=== PATIENT | female | born 1995 | race Caucasian/White ===

== ENCOUNTER 2021-05-31 11:09 | Emergency (ER) | payer OTHER, MEDICAID, SELFPAY ==
[2021-05-31 11:50] VITALS: BP 133/95; PULSE 104; RESP 16; TEMP 37.8; O2SAT 100; BMI 26.6
[2021-05-31] MEDS: Acetaminophen 325 MG TABLET 650 MG PO (11:59)
[2021-05-31 12:23] LABS: IDNOW Serial# 9DD0AD1C; Strep A Nucleic Acid Negative (Negative)
[2021-05-31 12:29] LABS: COVID-19 Test Negative (Negative)
--- NOTE | 2021-05-31 13:31 | ED_ITS ---
HPI - URI/Sore Throat General Chief Complaint: General Medical Stated Complaint: flu like symptoms Time Seen by Provider: 05/31/21 13:30 Source: patient Mode of arrival: ambulatory Limitations: language barrier (Citizen Of [place]-speaking) History of Present Illness MD elicited complaint: fever and sore throat Onset (ago): day(s) (Two days worse today) Consistency: constant and progressively worsening Severity: moderate Able to tolerate fluids by mouth: Yes Exacerbating factors: swallowing Relieving factors: nothing Associated symptoms: fever, chills, voice changes, myalgias, rhinorrhea, nasal congestion and sore throat Treatments prior to arrival: none Related Data Previous Rx's Medication Instructions Recorded amoxicillin 875 mg-potassium 1 tab PO BID 10 Days #20 tab 05/31/21 clavulanate 125 mg tablet (Augmentin) Allergies Allergy/AdvReac Type Severity Reaction Status Date / Time No Known Allergies Allergy Verified 05/31/21 12:21 Review of Systems Review of Systems: Constitutional : Positive subjective fevers/chills/fatigue/malaise No Weight loss ENT/Mouth : Positive sore throat, No Hearing loss, No Ear Pain, No Nasal Congestion, No Sinus Pain, No Hoarseness, No Rhinorrhea, No Swallowing Difficulty Eyes: No Eye Pain, No Swelling, No Redness, No Foreign Body, No Discharge, No Vision Changes Cardiovascular : No Chest Pain, No SOB, No Dyspnea on Exertion, No Orthopnea, No Edema, No Palpitations Respiratory : No Cough, No Sputum, No Wheezing, No Smoke Exposure, No Dyspnea Gastrointestinal : No Nausea, No Vomiting, No Diarrhea, No Constipation, No abdominal Pain, No Hematochezia, No Melena Genitourinary : no irregular bleeding, No Dysuria, No Urinary Frequency, No Hematuria, No Urinary Incontinence, No Urgency, No Flank Pain, No Urinary Flow Changes, No Hesitancy Musculoskeletal : No joint pain, No Myalgias, No Joint Swelling Skin : No Skin Lesions, No rash Neuro : No Weakness, No Numbness, No Paresthesias, No Loss of Consciousness, No Dizziness, No Headache Psych : No Anxiety/Panic, No Depression, No SI/HI/AH/VH, No Social Issues, Heme/Lymph: No Bruising, No Bleeding,No Lymphadenopathy Endocrine : No Polyuria, No Polydipsia, No Temperature Intolerance Yes all other systems are reviewed and are negative [facility] Past Medical History Attestation statement: The following information was validated with the patient. Medical History No known health problems Social History Social History Advance Directives: No Advance Directives Information Provided: Yes Patient : No Physical Exam Vital Signs: Vital Signs: Last Vital Signs Temp 100.1 F 05/31/21 11:50 Pulse 104 H 05/31/21 11:50 Resp 16 05/31/21 11:50 BP 133/95 H 05/31/21 11:50 Pulse Ox 100 05/31/21 11:50 Body Mass Index 26.6 vital signs have been reviewed as normal and appeared to be correct. Blood pressure hypertensive 133/95 Heart rate tachycardic at 104. Respiration rate normal. Temperature febrile 100.1. Oxygen saturation normal. Appearance: Alert. Oriented X3. No acute distress. Head: Normal external exam. Normocephalic. Atraumatic. Eyes: PERRLA. EOMI. Conjunctiva and sclera normal. Eyelids normal. ENT: EAC normal. TM's Normal. Posterior pharynx erythematous with exudate noted throughout. Uvula midline. Moist mucous membranes. No trismus noted. No drooling noted. No muffled voice noted. Not consistent with peritonsillar/pharyngeal/dental abscess. No stridor is noted. Neck: Normal inspection. Neck supple. FROM. No adenopathy. Thyroid Normal. No meningeal signs. No neck mass noted. CVS: Normal heart rate and rhythm. Heart sound normal. Pulses normal throughout. No murmurs/rales/gallops. Respiratory: No respiratory distress. Painless inspiration. Breath sounds normal. No wheezes/rales/rhonchi noted. Chest nontender. No accessory muscle usage noted or decreased air movement noted. Back: Full range of motion noted. No rashes/lesion/induration/fluctuance or signs of infection noted. Skin: Skin warm and dry. Normal skin color. Normal skin turgor. No rashes/lesions/lacerations noted. Extremities: Extremities exhibit normal range of motion. Extremities nontender. Neuro: Oriented X 3. No motor deficit. No sensory deficit. Reflexes normal. Normal steady gait. No focal neuro deficits noted. MDM - URI/Sore Throat Medical Records Attestation: I reviewed the patient's medical records. Lab Data Attestation: I reviewed the patient's lab results. Labs: Lab Results 05/31/21 05/31/21 Range/Units 12:01 12:02 COVID-19 (JENS) Negative (Negative) COVID-19 Clin Com See Note S. pyogenes GrpA GEOFF Negative (Negative) Discharge Plan Discharge Clinical Impression: Acute bacterial pharyngitis Patient Disposition: Home, Self-Care Instructions: Pharyngitis (ED) Prescriptions: New amoxicillin-pot clavulanate [Augmentin] 875-125 mg tablet 1 tab PO BID 10 Days Qty: 20 RF: 0 Referrals: Guille Gorman [Physician] - 2 days Print Language: Citizen Of [place]
[2021-05-31 13:33] VITALS: TEMP 37.1
[2021-05-31 13:52] LABS: IDNOW Serial# 9DD0AD1C; Strep A Nucleic Acid Negative (Negative)
== END 2021-05-31 13:43 | disposition home or self-care (01) ==
PROVIDERS: Physician Assistant Medical; Emergency Provider Emergency Medicine Emergency Medical Services
DX: J02.8 Acute pharyngitis due to other specified organisms (principal); R50.9 Fever, unspecified; M79.10 Myalgia, unspecified site; Z20.822 Contact with and (suspected) exposure to COVID-19; Z79.899 Other long term (current) drug therapy
CPT/HCPCS: 36415; 87635; 87651; 99283; 99284

== ENCOUNTER 2021-06-04 01:24 | Emergency (ER) | payer OTHER, MEDICAID, SELFPAY ==
[2021-06-04 04:45] VITALS: BP 136/82; PULSE 100; RESP 18; TEMP 38.4; O2SAT 97; BMI 27.5
--- NOTE | 2021-06-04 05:16 | ED.GENADULT ---
HPI - General Adult General Chief complaint: General Medical Stated complaint: throat pain, PT was here recently Time Seen by Provider: 06/04/21 05:16 Source: patient Mode of arrival: ambulatory Limitations: no limitations History of Present Illness HPI narrative: sore throat, she came to the ED on Monday and was started on Amoxicillin. The pain is worse and she has pain in her ears Onset (ago): day(s) Severity: moderate Related Data Previous Rx's Medication Instructions Recorded amoxicillin 875 mg-potassium 1 tab PO BID 10 Days #20 tab 05/31/21 clavulanate 125 mg tablet (Augmentin) Allergies Allergy/AdvReac Type Severity Reaction Status Date / Time No Known Allergies Allergy Verified 06/04/21 04:45 Review of Systems Constitutional: Constitutional: Reports no additional constitutional complaints Eyes: Eyes: Reports no additional eye complaints ENT: Denies dizziness Cardiovascular: Cardiovascular: Reports no additional cardiovascular complaints Respiratory: Respiratory: Reports as per HPI Gastrointestinal: Gastrointestinal: Reports no additional gastrointestinal complaints Genitourinary: Genitourinary: Reports no additional female genitourinary complaints Musculoskeletal: Musculoskeletal: Reports no additional musculoskeletal complaints Integumentary/Breasts: Skin/Breast: Denies rash Neurologic: Reports system reviewed and no additional complaints, except as documented, Denies dizziness and Denies Sensory deficit (Neuro) Psychiatric: Psychiatric: Denies anxiety PMF Past Medical History Medical History No known health problems Social History Social History Advance Directives: No Advance Directives Information Provided: Yes Patient : No Physical Exam Vital Signs: Vital Signs: Last Vital Signs Temp 101.1 F H 06/04/21 04:45 Pulse 100 06/04/21 04:45 Resp 18 06/04/21 04:45 BP 136/82 06/04/21 04:45 Pulse Ox 97 06/04/21 04:45 Body Mass Index 27.5 Const: Other: young female feeling weak Nutritional Appearance: average body habitus Orientation/consciousness: oriented to person and patient oriented x3 Limitations: no limitations HENMT: Other: pharynx with erythema and diffuse exudate, TMS are normal Head: Yes normal to inspection Ears: external ears normal General nose exam: Normal external nose present Mouth: Normal oral and palatal mucosa present Throat: Yes posterior oropharynx normal Eyes: General: appearance normal, both eyes and all related structures Neck: Other: supple Neck: Yes normal visual inspection Chest: Chest palpation & inspection: normal inspection of the chest Resp: Auscultation: clear to auscultation bilaterally Cardio: Jugular venous distension: no JVD Rate: regular rate Rhythm: regular rhythm Heart sounds: S1 normal heart sound present and S2 normal heart sound present GI: Inspection: Yes normal to inspection Palpation (GI): Soft to palpation, nontender and No hepatosplenomegaly present Auscultation: normal bowel sounds : General: Yes no CVA tenderness Back/Spine/Pelvis: Back: no CVA tenderness Skin: General skin exam: no rashes or lesions noted Neuro: General: oriented to person and patient oriented x3 Cranial nerves: Yes CN's II-XII intact bilaterally Motor exam (neuro): 5/5 motor strength present throughout Sensory Exam: No Sensory deficit (Neuro) Extrem: General: Yes normal to inspection Psych: Appearance: grossly normal Course Reevaluation(s) Reevaluation #1: patient with strep negative times 2, this is likely secondary to mono Time: 05:34 Reevaluation #2: Both strep and mono negative despite diffuse exudative pharyngitis. Will have the patient continue augmentin Time: 06:37 Medical Decision Making Lab Data Labs: Lab Results 06/04/21 06/04/21 Range/Units 04:59 05:59 Monoscreen Negative (Negative) S. pyogenes GrpA GEOFF Negative (Negative) Discharge Plan Discharge Clinical Impression: Exudative pharyngitis Patient Disposition: Home, Self-Care Instructions: Pharyngitis (ED) Additional Instructions: continue augmentin Prescriptions: No Action amoxicillin-pot clavulanate [Augmentin] 875-125 mg tablet 1 tab PO BID 10 Days Qty: 20 RF: 0 Referrals: Physician,Unknown [Primary Care Provider] - 1 week
[2021-06-04 05:18] LABS: IDNOW Serial# 9DD0AD1C; Strep A Nucleic Acid Negative (Negative)
[2021-06-04] MEDS: Ibuprofen 600 MG TABLET PO (05:47)
[2021-06-04] MEDS: dexAMETHasone sod phosphate 10 MG/ML VIAL IM (05:53)
[2021-06-04 06:20] LABS: Monotest Negative (Negative)
[2021-06-04 07:15] VITALS: TEMP 36.9
== END 2021-06-04 07:35 | disposition home or self-care (01) ==
PROVIDERS: Emergency Provider Emergency Medicine
DX: J02.8 Acute pharyngitis due to other specified organisms (principal); Z79.899 Other long term (current) drug therapy
CPT/HCPCS: 36415; 86308; 87651; 96372; 99283; 99284; J1100

== ENCOUNTER 2023-01-16 15:15 | Outpatient (REF) | payer MEDICAID, OTHER, SELFPAY ==
--- NOTE | ~2023-01-16 | US_ITS ---
EXAMINATION: US PELVIS CLINICAL INFORMATION: Pelvic pain, check IUD. COMPARISON: None available. TECHNIQUE: Ultrasound of the pelvis is performed using both transabdominal and transvaginal transducers along with Doppler. Transvaginal imaging is performed due to inadequate visualization transabdominally. FINDINGS: Uterus: The uterus is anteverted, anteflexed and measures 9.7 x 3.8 x 5.1 cm. The double wall endometrial thickness is 0.6 cm. There is an intrauterine contraceptive device in good position. The uterus is smooth in contour and has normal myometrial echogenicity. No visible fibroid. Adnexa: Both ovaries are visualized. There is normal color-flow to the adnexa. There is no ovarian torsion. There is no pelvic ascites or fluid collection. Right ovary measures 2.1 x 1.6 x 2.2 cm and volume 4.7 mL. It appears unremarkable. Left ovary measures 2.6 x 2.0 x 2.2 cm and volume 5.8 mL. There is a dominant follicle. There is no free fluid in the cul-de-sac. US/US pelvic and transvaginal IMPRESSION: The IUD is in correct position within the endometrial canal. Both ovaries are unremarkable except for a dominant follicle in the left ovary.
== END 2023-01-16 15:16 | disposition home or self-care (01) ==
LOC: HO.US 15:15
PROVIDERS: Visit Provider Advanced Practice Midwife
DX: N94.10 Unspecified dyspareunia (principal); Z30.431 Encounter for routine checking of intrauterine contraceptive device
CPT/HCPCS: 76830; 76856

== ENCOUNTER 2023-09-13 18:08 | Outpatient (REF) | payer MEDICAID, OTHER, SELFPAY | END 2023-09-13 18:09 | disposition home or self-care (01) | LOC: HO.HHCLNP 18:08 | PROVIDERS: Visit Provider Advanced Practice Midwife | DX: N89.8 Other specified noninflammatory disorders of vagina (principal) | CPT/HCPCS: 87480; 87510; 87660 ==

== ENCOUNTER 2023-10-20 10:16 | Outpatient (REF) | payer OTHER, SELFPAY ==
--- NOTE | ~2023-10-20 | XR_ITS ---
EXAMINATION: XR KNEE, RIGHT CLINICAL INFORMATION: Chronic right knee pain for 6 months COMPARISON: None available. TECHNIQUE: Four views of the right knee. FINDINGS: BONES: Bony structures are intact. There is no focal bone destruction or periosteal reaction seen. JOINTS: Alignment of joints is normal. SOFT TISSUE: Soft tissue is normal. No radiopaque foreign body or abnormal air collection is seen. XR/XR knee RT 4V IMPRESSION: 1. Normal x-rays of right knee. No fracture or dislocation or signs of osteomyelitis are found.
[2023-10-20 11:48] LABS: Basophils Percent Auto 0.4 % (0-2); Eosinophils Absolute Auto 0.1 X10*3/uL (0.0-0.4); Eosinophils Percent Auto 1.3 % (0-4); Hematocrit 37.8 % (37.0-47.0); Hemoglobin 12.5 g/dl (12.0-16.0); Imm Gran Abs Auto 0.01 X10*3/uL (0.00-0.03); Imm Gran Pct Auto 0.2 % (0.0-0.4); Lymphocytes Absolute Auto 1.5 X10*3/uL (1.2-4.9); Lymphocytes Percent Auto 31.4 % (20-40); MANUAL DIFF FLAG SCAN; Mean Corpuscular HGB Conc 33.1 g/dl (31.0-35.0); Mean Corpuscular Hemoglobin 28.9 pg (27.0-33.0); Mean Corpuscular Volume 87.5 fL (80.0-98.0); Mean Platelet Volume 10.5 fL (9.4-12.3); Monocytes Absolute Auto 0.2 X10*3/uL (0.1-1.2); Monocytes Percent Auto 4.2 % (2-11); Neutrophils Absolute Auto 2.9 x10*3/uL (2.0-8.3); Neutrophils Percent Auto 62.5 % (45-73); Platelet Count 240 X10*3/uL (160-400); Red Blood Count 4.32 X10*6/uL (4.20-5.50); Red Cell Distribution Width 13.2 % (11.0-16.0); SCAN SMEAR FLAG 1; White Blood Count 4.7 X10*3/uL (4.8-10.8)
[2023-10-20 12:27] LABS: Erythrocyte Sedimentation Rate 11 MM/HR (0-20)
[2023-10-20 13:30] LABS: SLIDE REVIEW VERIFIED
[2023-10-20 14:56] LABS: C Reactive Protein 0.83 mg/dL (< or = 0.50)
== END 2023-10-20 10:17 | disposition home or self-care (01) ==
LOC: HO.HHCL 10:16
PROVIDERS: Visit Provider Registered Nurse
DX: M25.561 Pain in right knee (principal); G89.29 Other chronic pain
CPT/HCPCS: 36415; 73564; 85025; 85652; 86140

== ENCOUNTER 2023-12-04 14:05 | Outpatient (REF) | payer OTHER, SELFPAY ==
[2023-12-04 16:51] LABS: HCG Quantitative 51 mIU/mL
== END 2023-12-04 14:06 | disposition home or self-care (01) ==
LOC: HO.HHCL 14:05
PROVIDERS: Visit Provider Registered Nurse
DX: Z34.91 Encounter for supervision of normal pregnancy, unspecified, first trimester (principal); Z3A.01 Less than 8 weeks gestation of pregnancy
CPT/HCPCS: 36415; 84702

== ENCOUNTER 2025-01-23 13:12 | Outpatient (REF) | payer MEDICAID, SELFPAY ==
--- OUTSIDE RECORDS SUMMARY | 2025-01-23 13:47 | XMS_ITS | Clinical Summary ---
Author Organization [employer] Address [address] [place] [address] 7t [place] [address] Care Team Providers Care Home Energy Rater Name Role Phone Haven Donaldson [facility] Primary Care Provider [phone] Allergies No known active allergies Medications * This document contains information received from the source organization and may not represent a complete record from that organization. albuterol 108 (90 Base) MCG/ACT inhalerIndicatio ns:Bronchitis Inhale 2 puffs every 6 (six) hours if needed for wheezing. 18 g 02/09/20 24 Active escitalopram (Lexapro) 5 MG tabletIndication s:Anxiety Take 1 tablet (5 mg) by mouth Once per day. 30 tablet 2 10/30/19 25 025 Active Magnesium Extra Strength 400 MG capsuleIndicatio ns:Constipation, unspecified constipation type TAKE 1 CAPSULE BY MOUTH ONCE PER DAY. 90 capsule 1 01/11/20 25 Active neomycin-polymyx in-hydrocortison e (Cortisporin) otic solutionIndicati ons:Acute otitis externa of right ear, unspecified type Administer 3 drops into the right ear 3 times daily for 7 days. 10 mL 01/17/20 25 025 Active amoxicillin-clav ulanate (Augmentin) 875-125 MG tabletIndication s:Non-recurrent acute suppurative otitis media of right ear without spontaneous rupture of tympanic membrane Take 1 tablet by mouth 2 times daily for 7 days. 14 tablet 01/17/20 25 025 Active fluticasone (Flonase) 50 MCG/ACT nasal spray Administer 1 spray into each nostril Once per day. 16 g 2 01/24/20 25 025 Active Magnesium 400 MG capsuleIndicatio ns:Constipation, unspecified constipation type Take 400 mg by mouth Once per day. 30 capsule 1 12/07/19 25 025 Discontinued Active Problems Problem Noted Date Diagnosed Date Tinnitus of both ears 01/23/2025 Current moderate episode of major depressive dis order 01/01/2025 History of rheumatic fever 10/31/2023 Anxiety 02/07/2023 Overview (07/19/2023): ?? Sertraline 25 mg ?? Hydroxyzine 25mg PRN ?? Unable to tolerate trazodone (s/e) ?? On waitlist for OP therapy Assessment & Plan (07/19/2023 10:55 PM EST): ?? Well controlled ?? Continue current regimen ?? Contact HC if sx worsen or experiencing thoughts of SI or self harm. Pt has N crisis contact information Assessment & Plan (03/17/2023 4:41 PM EDT): Assessment and plan: Patient presents with restlessness, frustration, over eating, weigh gain, tearfulness, sense of isolation, difficulty concentrating, hopelessness, helplessness, decreased assertiveness and irritability. She reports that sxs began about 1 yr ago when her father moved to her household after losing his job and living arrangements. Patient reports conflictive relationship with father since childhood. We explored treatment options and she agreed to referral to individual therapy and to explore antidepressants with PCP. Assessment & Plan (03/09/2023 6:16 AM EDT): ?? INCREASE sertraline to 50mg daily ?? START hydroxyzine PRN ?? Follow up with [facility] re therapy start ?? Contact HC if sx worsen or experiencing thoughts of SI or self harm. Pt has [facility] crisis contact information Healthcare maintenance 02/07/2023 Overview (02/07/2023): Mammo: Pap: NIL 12/2021 C-scope: BMD: HCV Screen: HIV Screen: Immunizations: Screening Labs: Resolved Problems Problem Noted Date Diagnosed Date Resolved Date Bronchitis 02/09/2024 04/24/2024 Assessment & Plan (02/10/2024 12:09 PM EDT): Pt with worsening cough and diffuse painful inspiration, no hx of asthma but audible wheeze, trial inhaler , if no improvement, add prednisone 20 mg daily for 5 days, side effects during of all medications reviewed. If fever develops, dehydration or pt feels worse, er and [facility] hours reviewed, Poc testing neg for covid and flu Moderate episode of recurren t major depressive disorder 12/12/2023 04/24/2024 Assessment & Plan (12/12/2023 12:23 PM EDT): PROGRESS NOTE: ID: Salud is a 28 y.o. cis-female with previous documented hx of Anxiety services including OP Psychotherapy and psychopharmacology; who presents for Anxiety and Depression. Lindsey moved from [facility] 5 years ago. Currently lives with her and daughters, not working currently. During IBH Consult Salud presenting with depressed mood, loss of interests/pleasure , change in appetite or weight overeating, psychomotor agitation, trouble concentrating, fatigue/loss of energy, inappropriate guilt and excessive worry/anxiety, difficulty controlling worry, restless/keyed up/On edge, easily fatigued, difficulty concentrating/Mind going blank , irritability, and muscle tension; for a period of 6-12 mo, for all symptoms in the context of stress relationship with father, who recently moved from [facility], lack of social support, feeling guilty due to removing father from her house. PLAN: New/Additional Services needed Off-site services for Behavioral Health Integration Plan External OP therapy referral and OP psychiatry Referral Patient Self Plan Patient to utilize skills provided in intervention and Patient to reach out to [facility] team as needed Abnormal uterine bleeding 02/07/2023 Encounters * This document contains information received from the source organization and may not represent a complete record from that organization. Date Type Department Care Team Description 01/23/2025 12:15 PM EDT Office Visit [facility] MEDICINE [address] [place] [id number] Stephanie Balderas MD Tinnitus of both ears (Primary Dx); Amenorrhea 01/23/2025 Travel 01/21/[address] [address] Haven Donaldson FNP Nurse Triage 01/16/2025 8:40 AM EDT Office Visit [facility] WALKIN [address] [address] Farshad Dickson MD Non-recurrent acute suppurative otitis media of right ear without spontaneous rupture of tympanic membrane (Primary Dx); Acute otitis externa of right ear, unspecified type 01/16/[address] [address] Haven Donaldson, PHYSICIAN AIDE recalls 01/16/2025 Travel 01/10/2025 Refill [facility] WALK-IN [address] [address] Haven Donaldson, REEMA Constipation, unspecified constipation type 01/02/2025 Patient Outreach [address] [address] Haven Donaldson, PHYSICIAN AIDE Care Coordination (C3/HARRIETT Armas- Follow up call) 01/02/[address] [address] Haven Donaldson PHYSICIAN AIDE Care Management (C3CM follow up call) 12/24/2024 Patient Outreach [address] [address] Haven Donaldson, PHYSICIAN AIDE Care Coordination (Shruti/HARRIETT rAmas#1- Follow up call-LVM) 12/06/2024 Orders Only [facility] WALK-IN CENTER [address] [place] [address] Haven Donaldson, PHYSICIAN AIDE Constipation, unspecified constipation type (Primary Dx) 12/06/2024 Patient Outreach [address] [address] Haven Donaldson, PHYSICIAN AIDE Care Coordination (C3SINA/HARRIETT Armas-Follow up) 12/06/[address] [address] [place], Haven, PHYSICIAN AIDE Care Management (C3CM follow up call) 12/02/[address] [address] Haven Donaldson PHYSICIAN AIDE Care Management ([facility] case conference) 2024 10:15 AM EDT Telemedicine [facility] Romulo [facility] [place] [address] Haevn Donaldson FNP Anxiety (Primary Dx); Upper respiratory tract infection, unspecified type 2024 Travel 11/22/2024 Population Health Risk Score Community [facility] (C3) [address] [phone] Provider, Population Health Generic 11/20/[address] [address] Haven Donaldson PHYSICIAN AIDE Care Management ([facility] initial assessment/enrollme nt) 11/20/2024 Patient Outreach [address] [address] Haven Donaldson PHYSICIAN AIDE Care Coordination ([facility]/HARRIETT Armas- Follow up call) 11/19/2024 Patient Outreach [address] [address] Haven Donaldson PHYSICIAN AIDE Care Coordination (HARRIETT Arnett- CM [place] Appt reminder) 11/05/2024 Patient Outreach [address] [address] Haven Donaldson PHYSICIAN AIDE Care Coordination ([facility]/HARRIETT Armas- PCP Referral-Agrees to participate) 11/04/[address] [address] Haven Donaldson PHYSICIAN AIDE Care Management ([facility] chart review) 10/30/2024 3:15 PM EST Telemedicine [facility] [place] [address] Haven Donaldson PHYSICIAN AIDE Anxiety (Primary Dx) 10/30/2024 Travel from Last 3 Months Social History Tobacco Use Types Packs/Day Years Used Date Smoking Tobacco: Never Smokeless Tobacco: Never Tobacco Cessation:Counseling Given: Not Answered Alcohol Use Standard Drinks/Week Comments Never 0 (1 standard drink = 0.6 oz pur e alcohol) Depression Answer Date Recorded Patient Health Questionnaire-9 Score 0 2024 Patient Health Questionnaire-9 Score 0 2024 Last PHQ-9: Questionnaire Data Not on file 0 2024 Housing Stability Answer Date Recorded What is your housing situation today? I have beryl butler 10/30/[address] you li ve. Do you have problems with any of the following? None of the above 10/30/2024 Food Insecurity Answer Date Recorded Within the past 12 months, y ou worried that your food would run out before you got money to buy more: Never True 10/30/2024 Within the past 12 months,th e food you bought just didn't last and you didn't have enough money to get more: Never True Transportation Answer Date Recorded In the past 12 months, has l ack of transportation kept you from medical appts, meetings, work or from getting things needed for daily living? No 10/30/2024 Utilities Answer Date Recorded In the past 12 months, has t he electric, gas, oil or water company threatened to shut off services in your home? No 10/30/2024 Depression Answer Date Recorded Patient Health Questionnaire-2 Score 0 2024 Internet Access Answer Date Recorded Internet Access Q1 Yes 10/30/2024 Internet Access Q2 Not on file 10/30/2024 Comments Unknown Sex and Gender Information Value Date Recorded Sex Assigned at Female 11/25/2022 9:23 AM EDT Legal Sex Female 9:17 AM EDT Gender Identity Female 11/25/2022 9:23 AM EDT Sexual Orientation Straight 11/25/2022 9: 23 AM EDT Last Filed Vital Signs Vital Sign Reading Time Taken Comments Blood Pressure 116/69 01/23/2025 12:26 PM EDT Pulse 87 01/23/2025 12:26 PM EDT Temperature 36.2 ??C (97.2 ??F) 01/23/2025 12:26 PM E DT Respiratory Rate 20 01/23/2025 12:26 PM EDT Oxygen Saturation 98% 01/23/2025 12:26 PM EDT Inhaled Oxygen Concentration - - Weight 81.8 kg (180 lb 4 oz) 01/23/2025 12:26 PM EDT Height 165.1 cm (5' 5 ) 01/23/2025 12:26 PM EDT Body Mass Index 30 01/23/2025 12:26 PM EDT Plan of Treatment Upcoming Encounters Date Type Department Care Team (Late st Contact Info) Description 04/25/2025 9:30 AM EDT Office Visit [facility] MEDICINE [address] [place] [address] Hart[place], Milo, [facility] [address] [place] [address] Health Maintenance Due Date Last Done Comments Alcohol/Substance Use Screening 2006 Family Planning (PISQ) 2009 Hepatitis B Vaccines (1 of 3 - 19+ 3-dose series) 2013 COVID-19 Vaccine (2023-2 5 season) 2024 HPV/Cotest 2024 SDOH Screening 11/05/2025 11/05/2024 Depression Screening 2025 2024, 2024 Cervical Cancer Screening 01/04/2026 Pap Smear 01/04/2026 01/04/2023 Tobacco Screening 01/23/2026 01/23/2025 DTaP/Tdap/Td Vaccines (2 - T d or Tdap) 06/24/2034 06/24/2024 Zoster Vaccines (1 of 2) 2044 RSV Patients and Patients Aged 60 years or older (1 - 1-dose 75+ series) 2069 HIV Screening Completed 01/19/2023 Hepatitis C Screening Completed 01/19/2023 Influenza Vaccine Completed 06/24/2024, 06/24/2024 HIB Vaccines Aged Out No longer eligi ble based on patient's age to complete this topic HPV Vaccines Aged Out No longer eligi ble based on patient's age to complete this topic Hepatitis A Vaccines Aged Out No long er eligible based on patient's age to complete this topic IPV Vaccines Aged Out No longer eligi ble based on patient's age to complete this topic Meningococcal B Vaccine Aged Out No l onger eligible based on patient's age to complete this topic Meningococcal Vaccine Aged Out No kenneth patti eligible based on patient's age to complete this topic Pneumococcal Vaccine: Pediatrics (0 to 5 Years) and At-Risk Patients (6 to 49) Years) Aged Out No longer eligible b ased on patient's age to complete this topic RSV under 20 months Aged Out No longe r eligible based on patient's age to complete this topic Rotavirus Vaccines Aged Out No longer eligible based on patient's age to complete this topic Procedures Procedure Name Priority Date/Time Associated Diagnosis Comments HEPATITIS C AB W/REFL TO HCV RNA, QN, PCR Routine 01/19/2023 8:34 AM EDT Healthcare maintenance HIV 1/2 ANTIGEN/ANTIBODY, FOURTH GENERATION W/RFL Routine 01/19/2023 8:34 AM EDT Healthcare maintenance IMAGE-GUIDED PAP W/AGE BASED SCR PROTOCOLS Routine 01/04/2023 10:31 AM EDT Cervical cancer screening from Last 3 Months or Most Recently Relevant to Health Maintenance Results * Hepatitis C Antibody with Reflex to HCV, RNA, Quantitative, Real-Time PCR (01/19/2023 8:34 AM EDT) Hepatitis C Antibody NON-REACT ROCHELLE NON-REACT ROCHELLE [employer] [facility] [facility] Index 0.15 <1.00 [employer] [facility] [facility] Comment: HCV antibody was non-reactive. There is no laboratory evidence of HCV infection. In most cases, no further action is required. However, if recent HCV exposure is suspected, a test for HCV RNA (test code 94947) is suggested. For additional information please refer to http://education.[employer]/faq/BZJ14m9 (This link is being provided for informational/ educational purposes only.) Blood Venous blood specimen / Unknown 01/19/2023 8:34 AM EDT 01/19/2023 8:35 AM EDT Narrative [facility] - 01/19/2023 8:51 PM EDT FASTING:YES FASTING: YES [facility] LAB BLOOD ORDERABLES Final Re sult [facility] [address], [place] [address] [facility] [place] [facility] [address] [place] [address] * HIV-1/2 Antigen and Antibodies, Fourth Generation, with Reflexes (01/19/2023 8:34 AM EDT) HIV Antigen/Antibody, 4th Generation NON-REAC TIVE NON-REAC TIVE [facility] [place] [employer] Comment: HIV-1 antigen and HIV-1/HIV-2 antibodies were not detected. There is no laboratory evidence of HIV infection. PLEASE NOTE: This information has been disclosed to you from records whose confidentiality may be protected by state law. ??If your state requires such protection, then the state law prohibits you from making any further disclosure of the information without the specific written consent of the person to whom it pertains, or as otherwise permitted by law. A general authorization for the release of medical or other information is NOT sufficient for this purpose. ?? For additional information please refer to http://education.Shopnlist/faq/FQE407 (This link is being provided for informational/ educational purposes only.) The performance of this assay has not been clinically validated in patients less than 2 years old. Blood Venous blood specimen / Unknown 01/19/2023 8:34 AM EDT 01/19/2023 8:35 AM EDT Narrative [facility] - 01/19/2023 8:51 PM EDT FASTING:YES FASTING: YES [facility] LAB BLOOD ORDERABLES Final Re sult [facility] [address], [place] [address] [facility] [place] [employer] [address] [place] [address] * Image-Guided Pap with Age-Based Screening Protocols (01/04/2023 10:31 AM EDT) Comment [facility] [place] [employer] Comment: This order for age-based cervical cancer and STI screening follows ACOG guidelines(PB 168, 140, PNJ088). See individual assays for performing site location. Clinical Information: None given [facility] LMP: NONE GIVEN [facility] Prev. PAP: NONE GIVEN [facility] Prev. BX: NONE GIVEN [facility] [employer] SOURCE: None given [facility] Statement Of Adequacy: [facility] Comment: Satisfactory for evaluation. Endocervical/transformation zone component present. Interpretation/ Result: Negative for intraepithelial lesion or malignancy. [facility] [place] [employer] COMMENT: This Pap test has been evaluated with computer assisted technology. [facility] [place] [facility] Cytotechnologis t: [facility] Comment: GSG, CT(ASCP) CT screening location: [address] ??[address] (Always Message) [facility] Comment: EXPLANATORY NOTE: The Pap is a screening test for cervical cancer. It is not a diagnostic test and is subject to false negative and false positive results. It is most reliable when a satisfactory sample, regularly obtained, is submitted with relevant clinical findings and history, and when the Pap result is evaluated along with historic and current clinical information. Pap Vial 01/04/2023 10:3 1 AM EDT 01/05/2023 7:15 AM EDT Winifred Moore [facility] LAB BLOOD ORDERABLES Marie sanchez Result [facility] [address], [place] [address] [facility] [place] [employer] [address] [place] [address] from Last 3 Months or Most Recently Relevant to Health Maintenance Insurance [facility] C[facility] Care Teams Home Energy Rater Relationship Specialty Start Date End Date Haven Donaldson FNP [address] [place] [id number] PCP - General Family Medicine 01/04/23 Sweta Pritchard Software Engineer Sales 11/20/24
--- OUTSIDE RECORDS SUMMARY | 2025-01-23 13:47 | XMS_ITS | Encounter Summary ---
Author Organization [employer] Address [address] [facility] 7 [place] [address] Care Team Providers Care Wet End Supervisor Name Role Phone Hubbard [facility] Primary Care Provider [phone] Reason for Visit * Reason Onset Date Comments Referral 12/21/2023 Encounter Details Date Type Department Care Team ([facility] st Contact Info) Description 12/21/[address] [facility] MEDICINE [address] [place] [address] [facility] [address] [place] [address] Referral Social History Tobacco Use Types Packs/Day Years Used Date Smoking Tobacco: Never Smokeless Tobacco: Never Alcohol Use Standard Drinks/Week Comments Never 0 (1 standard drink = 0.6 oz pur e alcohol) Depression Answer Date Recorded Patient Health Questionnaire-9 Score 13 12/12/2023 Patient Health Questionnaire-9 Score 13 12/12/2023 Last PHQ-9: Questionnaire Data Not on file 0 12/12/2023 Housing Stability Answer Date Recorded What is your housing situation today? I have beryl butler 07/03/[address] you li ve. Do you have problems with any of the following? None of the above 07/03/2023 Food Insecurity Answer Date Recorded Within the past 12 months, y ou worried that your food would run out before you got money to buy more: Never True 07/03/2023 Within the past 12 months,th e food you bought just didn't last and you didn't have enough money to get more: Never True Transportation Answer Date Recorded In the past 12 months, has l ack of transportation kept you from medical appts, meetings, work or from getting things needed for daily living? No 07/03/2023 Utilities Answer Date Recorded In the past 12 months, has t he electric, gas, oil or water company threatened to shut off services in your home? No 07/03/2023 Depression Answer Date Recorded Patient Health Questionnaire-2 Score 2 12/12/2023 Comments No Sex and Gender Information Value Date Recorded Sex Assigned at Female 11/25/2022 9:23 AM EDT Legal Sex Female 9:17 AM EDT Gender Identity Female 11/25/2022 9:23 AM EDT Sexual Orientation Straight 11/25/2022 9: 23 AM EDT documented as of this encounter Miscellaneous Notes * Telephone Encounter - Van Ryan - 12/21/2023 11:51 AM EDT Tc from pt requesting status on OBGYN referral for [facility]. Please contact pt at [phone] documented in this encounter Plan of Treatment Upcoming Encounters Date Type Department Care Team (Late st Contact Info) Description 04/25/2025 9:30 AM EDT Office Visit [facility] MEDICINE [address] [place] [address] AnikaHaven lugo [facility] [address] [place] [address] documented as of this encounter Visit Diagnoses Not on filedocumented in this encounter Additional Health Concerns Assessment Noted Time PHQ-9 Depression Total Score: 13 024 12:01 PM EDT documented as of this encounter Care Teams Wet End Supervisor Relationship Specialty Start Date End Date Haven Donaldson FNP [address] [place] [address] PCP - General Family Medicine 01/04/23 Sweta Pritchard Braiding Machine Tender 11/20/24 documented as of this encounter
--- OUTSIDE RECORDS SUMMARY | 2025-01-23 13:47 | XMS_ITS | Encounter Summary ---
Author Organization [employer] Address [address] [place] [address] 7 [place] [address] Care Team Providers Care Water Aerobics Instructor Name Role Phone [facility] Primary Care Provider [phone] Reason for Visit * Reason Onset Date Comments Care Management 12/06/2024 C3CM follow up c all Encounter Details Date Type Department Care Team ([facility] Contact Info) Description 12/06/2024 Telephone [facility] MEDICINE [address] [place] [address] [facility] [address] [place] [address] Care Management (C3CM follow up call) Social History Tobacco Use Types Packs/Day Years [...] encounter Miscellaneous Notes * Telephone Encounter - Sweta Pritchard - 12/06/2024 9:56 AM EDT CM Sweta Pritchard RN and CHW Cristopher Mckoy placed outbound call to patient. Patient's name, and address confirmed. Patient states is doing well with no recent illnesses or emergency room visits. Patient and are doing well. Patient is in a hurry and does not have much time to talk. Frit Mixer was able to confirm that patient is taking lexapro. Patient states she started taking it routinely on Monday. Side effects reviewed and the importance of taking medication routinely and not just when she is feeling side effects. Patient requesting magnesium as she states she took before and it helped with her constipation. Frit Mixer sent message requesting prescription from pcp. No further questions or concerns. CM reinforced direct contact information or CHW for any additional questions or concerns. Education provided on Walk-In Urgent Care located in [facility] of [facility]. Patient provided with after-hours line for [facility], , which offer night time triage service and option to transfer to subscription clerk provider if needed. Patient verbalizes understanding, and able to repeat back to senior underwriter. A follow up call will be placed within 10 days, patientagrees with plan. documented in this encounter Plan of Treatment Upcoming Encounters Date Type Department Care Team (Late st Contact Info) Description 04/25/2025 9:30 AM EDT Office Visit [facility] MEDICINE [address] [place] [address] Haven Donaldson FNP [address] [place] [address] documented as of this encounter Visit Diagnoses Not on filedocumented in this encounter Additional Health Concerns Assessment Noted Time PHQ-9 Depression Total Score: 0 11/30/19 10:12 AM EDT documented as of this encounter Care Teams Water Aerobics Instructor Relationship Specialty Start Date End Date Haven Donaldson FNP [address] [place] [address] PCP - General Family Medicine 01/04/23 Sweta Pritchard Frit Mixer 11/20/24 documented as of this encounter
--- OUTSIDE RECORDS SUMMARY | 2025-01-23 13:47 | XMS_ITS | Encounter Summary ---
Author Organization [employer] Address [address] [facility] 7t [place] [address] Care Team Providers Care Receivable Clerk Name Role Phone [place] [facility] Primary Care Provider [phone] Encounter Details Date Type Department Care Team (Latest Contact Info) Description 01/23/2025 Travel Social History Tobacco Use Types Packs/Day Years [...] AM EDT documented as of this encounter Plan of Treatment Upcoming Encounters Date Type Department Care Team (Late st Contact Info) Description 04/25/2025 9:30 AM EDT Office Visit [facility] [address] [place] [address] Haven Donaldson FNP [address] [place] [address] documented as of this encounter Visit Diagnoses Not on filedocumented in this encounter Additional Health Concerns Assessment Noted Time PHQ-9 Depression Total Score: 0 11/30/19 25 10:12 AM EDT documented as of this encounter Care Teams Receivable Clerk Relationship Specialty Start Date End Date Haven Donaldson FNP [address] [place] [address] PCP - General Family Medicine 01/04/23 Sweta Pritchard Geomorphologist 11/20/24 documented as of this encounter
--- OUTSIDE RECORDS SUMMARY | 2025-01-23 13:48 | XMS_ITS | Encounter Summary ---
Author Organization [employer] Address [address] [facility] 7t [place] [address] Care Team Providers Care Fabric Finisher Name Role Phone Anika [facility] Primary Care Provider [phone] Reason for Visit * Reason Comments Earache Encounter Details Date Type Department Care Team ([facility] st Contact Info) Description 01/23/2025 12:15 PM EDT Office Visit [facility] [address] [place] [address] Stephanie Balderas MD [address] [place] [address] Tinnitus of both ears (Primary Dx); Amenorrhea Social History Tobacco Use Types Packs/Day Years [...] AM EDT documented as of this encounter Last Filed Vital Signs Vital Sign Reading [...] Mass Index 30 01/23/2025 12:26 PM EDT documented in this encounter Miscellaneous Notes * Patient Education Note - Stephanie Balderas MD - 01/23/2025 4:48 PM EDT Images from the original note were not included. Patient Education Table of Contents Tinnitus To view videos and all your education online visit, [email or web address] or scan this QR code with your smartphone. Access to this content will in one year. Tinnitus Tinnitus El tinnitus es cuando sourav persona oye un radha que no proviene de suzette?n lugar. Puede sonar singh un zumbido en los o?dos u otra cosa. El radha puede ser dontae, suave o de intensidad intermedia. Puede durar unos pocos segundos o ser rogelio becky varios d?as. Puede irse y volver. Pam todas las personas tienen tinnitus en alg?n momento. Kuna no es lo mismo que la p?rdida auditiva. Jalyn es posible que deba consultar a un m?dico si: Dura mucho tiempo. Vuelve a aparecer con frecuencia. Tiene dificultad para dormir y concentrarse. ?Cu?les son las causas? A menudo se desconoce la causa del tinnitus. En algunos casos, puede desarrollarlo si: Est?? cerca de ruidos duane, singh de m?quinas o m?vanessa. Se le atasca un objeto en el o?do. Se le acumula cera en el o?do. Imelda mucho alcohol o cafe?na. Dena ciertos medicamentos. Comienza a perder la audici?n. Tambi?n puede desarrollarlo debido a algunas afecciones m?dicas. Estas pueden incluir: Infecciones de los o?dos o de los senos paranasales. Enfermedades card?acas. Presi?n arterial gina. Alergias. Enfermedad de M?ni?re. Problemas con la tiroides. Un tumor. Hallie es un crecimiento de c?lulas que no es normal. Un vaso sangu?james d?jasmine o abultado que se llama aneurisma cerca del o?do. ?Qu?? incrementa el riesgo? Es m?s probable que desarrolle tinnitus si: Est?? mucho tiempo cerca de ruidos duane. Es sourav persona de edad avanzada. Imelda alcohol. Fuma. ?Cu?les son los signos o s?ntomas? El principal s?ntoma es o?r un radha que no proviene de suzette?n lugar. Puede sonar singh un zumbido.Tambi?n puede sonar singh lo siguiente: Vibraci?n. Chisporroteo. Soplido de aire. Sibilancia. Silbido. Otros sonidos pueden ser: Crepitaci?n. Sourav corriente de agua. Sourav nota musical. Golpeteo. Murmullo. Puede tener s?ntomas en beatriz o ambos o?dos. ?C?mo se diagnostica? El tinnitus se diagnostica en funci?n de los s?ntomas, antecedentes m?dicos y un examen. El m?dico puede hacerle sourav prueba de audici?n completa si el tinnitus: Est?? en un solo o?do. No lo louise o?r niki. Dura m?s de 6?meses. Tambi?n es posible que deba consultar a un experto en trastornos auditivos llamado yesenia?logo. Hallie le puede hacer preguntas sobre juan manuel s?ntomas y c?mo afecta el tinnitus yeboah salina diaria. Posiblemente deba realizarse otras pruebas. Estas pueden incluir: Sourav exploraci?n por tomograf?a computarizada (TC). Sourav resonancia magn?ashanti (RM). Un angiograma. Hallie muestra c?mo fluye la miguel angel a austin?s de un vaso sangu?james. ?C?mo se trata? El tratamiento puede incluir: Terapia para ayudarlo a controlar el estr?s que significa vivir con tinnitus. Encontrar formas de enmascarar o cubrir el radha del tinnitus. Kuna incluye lo siguiente: ? M?quinas de radha o ruido parker. ? Dispositivos que se colocan en o?do y reproducen sonidos o m?vanessa. ? Un humidificador que debbi ruido dontae. ? Estimulaci?n ac?stica neuronal. En esta se usan auriculares para escuchar m?vanessa que tiene sourav se?al especial. Con el tiempo, esta se?al puede cambiar algunas de las v?as del cerebro. Kuna puede hacer que se vuelva menos sensible al tinnitus. Hallie tratamiento se usa en casos muy graves. El uso de aud?fonos o implantes cocleares, si el tinnitus se debe a la p?rdida de la audici?n. Si la causa del tinnitus es sourav afecci?n m?dica, tratar la afecci?n puede hacer que desaparezca. Siga estas instrucciones en yeboah casa: Controlar los s?ntomas Trate de evitar estar en lugares ruidosos o cerca de ruidos duane. Use tapones para los o?dos o auriculares cuando est?? cerca de ruidos duane. Busque maneras de reducir el estr?s. Estas pueden incluir meditaci?n, yoga o respiraci?n profunda. Duerma con la michelle levemente elevada. Instrucciones generales Use los medicamentos de venta jael y los recetados solo singh se lo haya indicado el m?dico. Debbi un seguimiento de las cosas que le causan s?ntomas (desencadenantes). Trate de evitar esos factores. Para evitar que el tinnitus empeore: ? No bharti alcohol. ? No consuma cafe?na. ? No consuma suzette?n producto que contenga nicotina o tabaco. Estos productos incluyen cigarrillos, tabaco para mascar y aparatos de vapeo, singh los cigarrillos electr?nicos. Si necesita ayuda para dejar de fumar, consulte al m?dico. ? Evite consumir lauren franck. Duerme lo suficiente cada noche. D?nde obtener m?s informaci?n [place] Tinnitus Association (Asociaci?n Estadounidense del Tinnitus): [email or web address] Comun?quese con un m?dico si: Los s?ntomas brown 3 semanas o m?s sin detenerse. Tiene p?rdida repentina de la audici?n. Los s?ntomas empeoran o no mejoran con los cuidados en el hogar. No puede controlar el estr?s que significa vivir con tinnitus. Solicite ayuda de inmediato si: Comienza a tener tinnitus despu?s de sufrir sourav lesi?n en la michelle. Tiene tinnitus y: ? Mareos. ? N?useas y v?mitos. ? P?rdida del equilibrio. ? Dolor de michelle repentino e intenso. ? Cambios en la vista. ? Debilidad en la srinivas, los brazos o las piernas. Estos s?ntomas pueden indicar sourav emergencia. Solicite ayuda de inmediato. Llame al 911. No espere a milton si los s?ntomas desaparecen. No conduzca por juan manuel propios medios hasta el hospital. Esta informaci?n no tiene singh fin reemplazar el consejo del m?dico. Aseg?rese de hacerle al m?dicocualquier pregunta que tenga. Document Released: 2006-08-28 Document Updated: 2024-01-11 Document Reviewed: 2024-01-11 Tribzi Patient Education ? 2024 Viewdle. * Patient Education Note - Stephanie Balderas MD - 01/23/2025 4:48 PM EDT Images from the original note were not included. Patient Education Table of Contents Tinnitus To view videos and all your education online visit, [email or web address] or scan this QR code with your smartphone. Access to this content will in one year. Tinnitus Tinnitus El tinnitus es cuando sourav persona oye un radha que no proviene de suzette?n lugar. Puede sonar singh un zumbido en los o?dos u otra cosa. El radha puede ser dontae, suave o de intensidad intermedia. Puede durar unos pocos segundos o ser rogelio becky varios d?as. Puede irse y volver. Pam todas las personas tienen tinnitus en alg?n momento. Kuna no es lo mismo que la p?rdida auditiva. Jalyn es posible que deba consultar a un m?dico si: Dura mucho tiempo. Vuelve a aparecer con frecuencia. Tiene dificultad para dormir y concentrarse. ?Cu?les son las causas? A menudo se desconoce la causa del tinnitus. En algunos casos, puede desarrollarlo si: Est?? cerca de ruidos duane, singh de m?quinas o m?vanessa. Se le atasca un objeto en el o?do. Se le acumula cera en el o?do. Imelda mucho alcohol o cafe?na. Dena ciertos medicamentos. Comienza a perder la audici?n. Tambi?n puede desarrollarlo debido a algunas afecciones m?dicas. Estas pueden incluir: Infecciones de los o?dos o de los senos paranasales. Enfermedades card?acas. Presi?n arterial gina. Alergias. Enfermedad de M?ni?re. Problemas con la tiroides. Un tumor. Hallie es un crecimiento de c?lulas que no es normal. Un vaso sangu?james d?jasmine o abultado que se llama aneurisma cerca del o?do. ?Qu?? incrementa el riesgo? Es m?s probable que desarrolle tinnitus si: Est?? mucho tiempo cerca de ruidos duane. Es sourav persona de edad avanzada. Imelda alcohol. Fuma. ?Cu?les son los signos o s?ntomas? El principal s?ntoma es o?r un radha que no proviene de suzette?n lugar. Puede sonar singh un zumbido.Tambi?n puede sonar singh lo siguiente: Vibraci?n. Chisporroteo. Soplido de aire. Sibilancia. Silbido. Otros sonidos pueden ser: Crepitaci?n. Sourav corriente de agua. Sourav nota musical. Golpeteo. Murmullo. Puede tener s?ntomas en beatriz o ambos o?dos. ?C?mo se diagnostica? El tinnitus se diagnostica en funci?n de los s?ntomas, antecedentes m?dicos y un examen. El m?dico puede hacerle sourav prueba de audici?n completa si el tinnitus: Est?? en un solo o?do. No lo louise o?r niki. Dura m?s de 6?meses. Tambi?n es posible que deba consultar a un experto en trastornos auditivos llamado yesenia?logo. Hallie le puede hacer preguntas sobre juan manuel s?ntomas y c?mo afecta el tinnitus yeboah salina diaria. Posiblemente deba realizarse otras pruebas. Estas pueden incluir: Sourav exploraci?n por tomograf?a computarizada (TC). Sourav resonancia magn?ashanti (RM). Un angiograma. Hallie muestra c?mo fluye la miguel angel a austin?s de un vaso sangu?james. ?C?mo se trata? El tratamiento puede incluir: Terapia para ayudarlo a controlar el estr?s que significa vivir con tinnitus. Encontrar formas de enmascarar o cubrir el radha del tinnitus. Kuna incluye lo siguiente: ? M?quinas de radha o ruido parker. ? Dispositivos que se colocan en o?do y reproducen sonidos o m?vanessa. ? Un humidificador que debbi ruido dontae. ? Estimulaci?n ac?stica neuronal. En esta se usan auriculares para escuchar m?vanessa que tiene sourav se?al especial. Con el tiempo, esta se?al puede cambiar algunas de las v?as del cerebro. Kuna puede hacer que se vuelva menos sensible al tinnitus. Hallie tratamiento se usa en casos muy graves. El uso de aud?fonos o implantes cocleares, si el tinnitus se debe a la p?rdida de la audici?n. Si la causa del tinnitus es sourav afecci?n m?dica, tratar la afecci?n puede hacer que desaparezca. Siga estas instrucciones en yeboah casa: Controlar los s?ntomas Trate de evitar estar en lugares ruidosos o cerca de ruidos duane. Use tapones para los o?dos o auriculares cuando est?? cerca de ruidos duane. Busque maneras de reducir el estr?s. Estas pueden incluir meditaci?n, yoga o respiraci?n profunda. Duerma con la michelle levemente elevada. Instrucciones generales Use los medicamentos de venta jael y los recetados solo singh se lo haya indicado el m?dico. Debbi un seguimiento de las cosas que le causan s?ntomas (desencadenantes). Trate de evitar esos factores. Para evitar que el tinnitus empeore: ? No bharti alcohol. ? No consuma cafe?na. ? No consuma suzette?n producto que contenga nicotina o tabaco. Estos productos incluyen cigarrillos, tabaco para mascar y aparatos de vapeo, singh los cigarrillos electr?nicos. Si necesita ayuda para dejar de fumar, consulte al m?dico. ? Evite consumir lauren franck. Duerme lo suficiente cada noche. D?nde obtener m?s informaci?n [place] Tinnitus Association (Asociaci?n Estadounidense del Tinnitus): [email or web address] Comun?quese con un m?dico si: Los s?ntomas brown 3 semanas o m?s sin detenerse. Tiene p?rdida repentina de la audici?n. Los s?ntomas empeoran o no mejoran con los cuidados en el hogar. No puede controlar el estr?s que significa vivir con tinnitus. Solicite ayuda de inmediato si: Comienza a tener tinnitus despu?s de sufrir sourav lesi?n en la michelle. Tiene tinnitus y: ? Mareos. ? N?useas y v?mitos. ? P?rdida del equilibrio. ? Dolor de michelle repentino e intenso. ? Cambios en la vista. ? Debilidad en la srinivas, los brazos o las piernas. Estos s?ntomas pueden indicar sourav emergencia. Solicite ayuda de inmediato. Llame al 911. No espere a milton si los s?ntomas desaparecen. No conduzca por juan manuel propios medios hasta el hospital. Esta informaci?n no tiene singh fin reemplazar el consejo del m?dico. Aseg?rese de hacerle al m?dicocualquier pregunta que tenga. Document Released: 2006-08-28 Document Updated: 2024-01-11 Document Reviewed: 2024-01-11 Elsevier Patient Education ? 2024 [employer]. documented in this encounter Plan of Treatment Upcoming Encounters Date Type Department Care Team (Late st Contact Info) Description 04/25/2025 9:30 AM EDT Office Visit [facility] [address] [place] [address] Haven Donaldson FNP [address] [place] [address] Scheduled Orders Name Type Priority Associated Diagnoses Orde r Schedule TSH with Reflex to Free T4 Lab Routine Amenorrhea Expected: 01/23/2025 (Approximate), Expires: 01/23/2026 documented as of this encounter Visit Diagnoses Diagnosis Tinnitus of both ears- Primary Unspecified tinnitus Amenorrhea Absence of menstruation documented in this encounter Additional Health Concerns Assessment Noted Time PHQ-9 Depression Total Score: 0 11/30/19 25 10:12 AM EDT documented as of this encounter Care Teams Fabric Finisher Relationship Specialty Start Date End Date Anika REEMA Orourke [address] [place] [address] PCP - General Family Medicine 01/04/23 Sweta Pritchard Mental Health Orderly 11/20/24 documented as of this encounter
--- OUTSIDE RECORDS SUMMARY | 2025-01-23 13:48 | XMS_ITS | Encounter Summary ---
Author Organization [employer] Address [address] [facility] 7 [place] [address] Care Team Providers Care Tube Drawing Supervisor Name Role Phone [facility] Primary Care Provider [phone] Reason for Visit * Reason Onset Date Comments Nurse Triage 01/21/2025 Encounter Details Date Type Department Care Team ([facility] st Contact Info) Description 01/21/2025 Telephone [facility] [address] [place] [address] [facility] [address] [place] [address] Nurse Triage Social History Tobacco Use Types Packs/Day Years [...] encounter Miscellaneous Notes * Telephone Encounter - Dipika May RN - 01/21/2025 11:20 AM EDT ERISI pt. Seen in walk in clinic on 01/16/25. Called pt via [employer] lay out technician [id number] Jacky. Pt. States that she went to walk in [place] on 01/16/25 for Right Otitis Media and was given an antibiotic. Pt. Pain has gone away but, pt. Now has constantringing and dizziness in right ear. Pt states that there is also a feeling of congestion. Pt. Denies pain but, states The ringing in that ear and dizziness is unbearable all day long . Pt. Has a small child so she would prefer a scheduled office visit. Protocol Used: Tinnitus (Adult) Protocol-Based Disposition: See in Office or Video Visit within 3 Days- appt. On 01/23/25 at 1215pm. Positive Triage Questions: * Moderate-Severe tinnitus (i.e., interferes with work, school, or sleep) * Symptoms only or mainly in 1 ear (unilateral tinnitus) * Recurrent episodes of hearing loss, dizziness, and ringing in the ear * Patient wants to be seen * All higher-acuity triage questions were negative Care Advice Discussed: * Reassurance and Education - Hearing [place] or Soft Tinnitus * Avoid Loud Noise * Avoid Caffeine, Aspirin, and Alcohol * Use Background Noise to Decrease Tinnitus * Telephone Encounter - Digna Janusz Belle - 01/21/2025 10:37 AM EDT Symptom: Ear Ringing or Buzzing (No Pain) Outcome: Schedule a same-day appointment or talk to a nurse or provider today Reason: Started within the past 3 days The caller accepted this outcome. Pt was seen in walk-in center at 01/16/25 documented in this encounter Plan of Treatment Upcoming Encounters Date Type Department Care Team (Late st Contact Info) Description 04/25/2025 9:30 AM EDT Office Visit [facility] [address] [place] [address] Haven Donaldson FNP [address] [place] [address] documented as of this encounter Visit Diagnoses Not on filedocumented in this encounter Additional Health Concerns Assessment Noted Time PHQ-9 Depression Total Score: 0 11/30/19 10:12 AM EDT documented as of this encounter Care Teams Tube Drawing Supervisor Relationship Specialty Start Date End Date Haven Donaldson FNP [address] [place] [address] PCP - General Family Medicine 01/04/23 Sweta Pritchard Cash Applications Representative 11/20/24 documented as of this encounter
--- OUTSIDE RECORDS SUMMARY | 2025-01-23 13:48 | XMS_ITS | Encounter Summary ---
Author Organization [employer] [facility] Address [address] [place] [address] [place] [address] Care Team Providers Care Environmental Studies Program Director Name Role Phone [facility] Primary Care Provider [phone] Reason for Visit * Reason Comments Med Refill Encounter Details Date Type Department Care Team ([facility] Contact Info) Description 03/31/2023 Refill [facility] [address] [place] [address] [phone] [facility] [address] [place], [place] [phone] Anxiety Social History Tobacco Use Types Packs/Day Years Used Date Smoking Tobacco: Never Smokeless Tobacco: Never Alcohol Use Standard Drinks/Week Comments Never 0 (1 standard drink = 0.6 oz pur e alcohol) Comments No Sex and Gender Information Value Date Recorded Sex Assigned at Female 11/25/2022 9:23 AM EDT Legal Sex Female 9:17 AM EDT Gender Identity Female 11/25/2022 9:23 AM EDT Sexual Orientation Straight 11/25/2022 9: 23 AM EDT COVID-19 Exposure Response Date Recorded In the last 10 days, have yo u been in contact with someone who was confirmed or suspected to have Coronavirus/COVID-19? No / Unsure 03/07/2023 9:14 AM EDT documented as of this encounter Plan of Treatment Upcoming Encounters Date Type Department Care Team (Late Contact Info) Description 04/25/2025 9:30 AM EDT Office Visit [facility] [address] [place] [phone] [facility] [address] [place], [place] [phone] documented as of this encounter Visit Diagnoses Diagnosis Anxiety Anxiety state, unspecified documented in this encounter Additional Health Concerns Assessment Noted Time PHQ-9 Depression Total Score: 0 03/07/20 23 9:21 AM EDT documented as of this encounter Care Teams Environmental Studies Program Director Relationship Specialty Start Date End Date Haven Donaldson FNP [address] [place] [phone] PCP - General Family Medicine 01/04/23 Sweta Pritchard Sweet Dough Mixer 11/20/24 documented as of this encounter
[2025-01-23 16:57] LABS: TSH reflex Free T4 0.78 uIU/mL (0.32-4.0)
[2025-01-23 17:13] LABS: HCG Quantitative < 2 mIU/mL
== END 2025-01-23 13:13 | disposition home or self-care (01) ==
LOC: HO.HHCL 13:12
PROVIDERS: Visit Provider Internal Medicine
DX: N91.2 Amenorrhea, unspecified (principal)
CPT/HCPCS: 36415; 84443; 84702